=== PATIENT | male | born 1950 | race Caucasian/White ===

== ENCOUNTER 2017-01-30 08:24 | Day surgery (SDC) | payer MEDICARE, BC ==
[~2017-01-30] VITALS: Ht 182.9 cm; Wt 72.3 kg
[~2017-01-30 08:24] MED LIST: FNST5T PO; LACTATED RINGERS 1,000 ML IV SCH; MELO-249 PO; OMEP20TA PO; SODIUM CHLORIDE FLUSH 3 ML SYR IV PRN; TAMS-8 PO; TRM50T PO
--- OUTSIDE RECORDS SUMMARY | 2017-01-30 08:28 | XMS REPORT ---
Author Author William Martínez Organization [facility] Address [address] [place] [address] Care Team Providers Care Assistant Manager Pt Name Role Phone William Martínez Unavailable [phone] PROBLEMS Type Condition ICD9-CM Code HHQ06-[id number] Code Onset Dates Condition Status SNOMED Code Problem Chest pain R07.9 Active 32987011 Problem Dyspnea on exertion R06.09 Active 01747683 Problem Episodic atrial fibrillation I48.0 Active 45082155 Problem Palpitation R00.2 Active 61445683 Problem FH: CVA (cerebrovascular accident) Z82.3 Active [id number] ALLERGIES Unknown Allergies SOCIAL HISTORY No smoking Hx information available PLAN OF CARE VITAL SIGNS MEDICATIONS Unknown Medications RESULTS No Results PROCEDURES No Known procedures IMMUNIZATIONS No Known Immunizations
[2017-01-30 08:43] VITALS: BP 133/92
[2017-01-30] MEDS ORDERED: METO-272 PO (08:43)
[2017-01-30] MEDS ORDERED: MIDAZOLAM 2 MG/2 ML (VERSED) VIAL ONE (09:02)
[2017-01-30] MEDS ORDERED: ALFENTANIL 500 MCG/ML (ALFENTA) 5 ML AMP IV ONE (09:02)
[2017-01-30] MEDS ORDERED: PROPOFOL 20 ML IV ONE (09:03)
[2017-01-30 10:27] VITALS: BP 118/67
[2017-01-30 10:55] VITALS: BP 115/70
--- NOTE | 2017-01-30 11:44 | OPERATIVE REPORT ---
DATE OF OPERATION: 01/30/2017 PRE-OPERATIVE DIAGNOSIS: History of adenomatous colon polyp POST-OPERATIVE DIAGNOSIS: 1. Colon polyps. 2. Sigmoid diverticulosis OPERATIVE PROCEDURE: Total colonoscopy with polypectomies (endoscopic mucosal resection) SURGEON: Misael Clay MD ANESTHESIA: Monitored anesthesia care FINDINGS: 1. The bowel prep was excellent. 2. There were 2 sessile polyps noted along folds, one in the ascending colon and in the transverse colon. The one in the transverse colon had not been found in the specimen container at the end of the case. 3. There were diverticula seen in the sigmoid colon. INDICATION: The patient is a 66-year-old originally referred by Dr. Valderrama who presents today for surveillance colonoscopy. He had come in for a colonoscopy several weeks ago, but was found to be atrial fibrillation and so we postponed it for a cardiac workup. That has been completed. DESCRIPTION OF PROCEDURE: The patient was informed of the risks and benefits and agreed to proceed. He was placed in the left lateral decubitus position and was administered IV sedation. When properly sedated a rectal exam was performed, which was normal. The lighted endoscope was passed into the rectum and advanced along the colon. Within the transverse colon this first polyp was noted. This was removed using the saline lift and cautery snare. I was not able to find it afterward to retrieve it for pathology, but I did suction some adjacent liquid in dependent areas that may have contained the polyp. The polyp was not seen when the scope was retracted later during the case. At this point the scope was advanced to the cecum where the ileocecal valve and the appendiceal orifice were easily seen. Within the distal ascending colon, the second polyp was noted, photographed and removed using the saline-lift technique along with the cautery snare to remove the remaining flattest portion. It appeared to be completely removed. This was retrieved for pathology. The scope was slowly withdrawn through the ascending, transverse, descending, and sigmoid colon. No other polyps were seen. Diverticula were seen distally. The rectum appeared normal on regular view and retroflexion. The scope was removed completing the procedure. The patient tolerated the procedure without complications. I will recommend a repeat screening colonoscopy in 5 years.
== END 2017-01-30 11:05 | disposition home or self-care (01) ==
LOC: ASC 08:24
PROVIDERS: ATTEND Surgery
DX: D12.2 Benign neoplasm of ascending colon (principal); D12.3 Benign neoplasm of transverse colon; K57.30 Diverticulosis of large intestine without perforation or abscess without bleeding; Z86.010 Personal history of colon polyps; I48.91 Unspecified atrial fibrillation; I10 Essential (primary) hypertension; K21.9 Gastro-esophageal reflux disease without esophagitis
CPT/HCPCS: 45390; 88305; 93005; J2250; J7120

== ENCOUNTER → 2017-02-28 | Outpatient (CLI) | payer MEDICARE, BC ==
[~2017-02-28] MED LIST changes: -LACTATED RINGERS 1,000 ML IV SCH; +METO-272 PO; -SODIUM CHLORIDE FLUSH 3 ML SYR IV PRN
== END ==
LOC: RT 11:54
PROVIDERS: ATTEND Internal Medicine
DX: I48.0 Paroxysmal atrial fibrillation (principal)
CPT/HCPCS: 93005